=== PATIENT | female | born 1990 | race Two or more races ===

== ENCOUNTER 2017-06-18 23:20 | Outpatient (CLI) | payer MEDICAID ==
[~2017-06-18] VITALS: Ht 157.5 cm; Wt 62.0 kg
[2017-06-18 23:49] LABS: MICROSCOPIC NOT IND
[2017-06-19 00:01] LABS: AMPHETAMINE SCREEN, URINE Negative (Negative); BARBITURATE SCREEN, URINE Negative (Negative); BENZODIAZEPINE SCREEN, URINE Negative (Negative); CANNABINOID SCREEN, URINE Negative (Negative); COCAINE SCREEN, URINE Negative (Negative); METHADONE SCREEN, URINE Negative (Negative); OPIATE SCREEN, URINE Negative (Negative)
[2017-06-19 00:22] VITALS: BP 107/58
== END 2017-06-19 00:28 ==
LOC: LDOP 23:20
PROVIDERS: ATTEND Obstetrics & Gynecology
DX: O26.892 Other specified pregnancy related conditions, second trimester (principal); R10.9 Unspecified abdominal pain; M54.9 Dorsalgia, unspecified; Z3A.26 26 weeks gestation of pregnancy
CPT/HCPCS: 59025; 80307; 81003; 87086; 99201; G0463